=== PATIENT | female | born 1955 | race Two or more races ===

== ENCOUNTER 2025-06-10 07:45 | Inpatient (IN) | payer OTHER ==
[~2025-06-10] VITALS: Ht 167.6 cm; Wt 83.9 kg
[2025-06-10 09:25] VITALS: BP 155/82
[2025-06-10 09:35] LABS: BASO % 0.5 % (0.1-1.2); EOS # 0.24 (0.04-0.54); EOS % 3.9 % (0.7-7.0); LYMPH # 2.46 (1.18-3.74); LYMPH % 40.3 % (19.3-53.1); MEAN PLATELET VOLUME 9.30 fl (9.4-12.4); MONO # 0.61 (0.24-0.82); MONO % 10.0 % (4.7-12.5); NEUT # 2.75 (1.56-6.13); NEUT % 45.1 % (34.0-71.1); RED CELL DISTRIBUTION WIDTH 14.0 % (11.6-14.4)
[2025-06-10 09:49] LABS: URINE APPEARANCE Clear; URINE BILIRRUBIN Negative (NEGATIVE); URINE BLOOD Negative; URINE COLOR Yellow; URINE GLUCOSE Negative (NEGATIVE); URINE KETONE Negative (NEGATIVE); URINE LEUKOCYTE Negative; URINE NITRATE Negative; URINE PROTEIN Negative (NEGATIVE); URINE UROBILINOGEN 0.2 E.U./dl
[2025-06-10 09:54] LABS: URINE BACTERIA 11.9 uL (0.0-1933); URINE EPITHELIAL CELLS 2.6 uL (0.0-38.8); URINE RBC 4.1 uL (0.0-20.8)
[2025-06-10 10:00] LABS: INR 1.04
[2025-06-10 10:03] LABS: URINE CAST 0.00 uL (0.0-1.40); URINE WBC 0.7 uL (0.0-23.2)
[2025-06-10 11:03] LABS: ALT/SGPT 20.0 U/L (12-78); AST/SGOT 16.0 U/L (15-37); BILIRUBIN TOTAL 0.41 mg/dL (0.3-1.2); BUN CREA RATIO 24.0 (7.0-25.0); CHOL HDL RATIO 2.9 (0-5.0); CREATININE SERUM 0.74 mg/dL (0.55-1.02); GFR 78.28; GLOBULINA 4.3 G/DL (2.4-3.5); GLUCOSE FASTING 93.0 mg/dL (65-100); HDL 62.0 mg/dl (40-60); LDL 98.0 mg/dl (0-130); OSMOLALITY SERUM 283.0 MOSM/KG (275-295); VLDL 19.0 (0-39)
[2025-06-17] MEDS ORDERED: MORPHINE SULFATE 4 MG/ML CARTRIDGE IV ONE (09:45)
[2025-06-17] MEDS ORDERED: LIDOCAINE HCL 1%/EPINEPHRINE 20ML VIAL IJ ONE (09:45)
[2025-06-17] MEDS ORDERED: TRANEXAMIC ACID 100MG/1ML (1000MG) AMPUL IV ONE ×2 (09:45)
[2025-06-17] MEDS ORDERED: VANCOMYCIN HCL 1,000 MG VIAL IR ONE (09:45)
[2025-06-17] MEDS ORDERED: BUPIVACAINE HCL 30 ML VIAL IJ ONE (09:45)
[2025-06-17] MEDS ORDERED: KETOROLAC TROMETHAMINE 60 MG VIAL IM ONE (09:45)
[2025-06-17] MEDS ORDERED: VANCOMYCIN HCL 1,000 MG VIAL IV ONE (09:45)
[2025-06-17] MEDS ORDERED: SODIUM CHLORIDE 0.45 % 1,000 ML IV SCH (10:45)
[2025-06-17] MEDS ORDERED: MORPHINE SULFATE 4 MG/ML CARTRIDGE IV PRN (10:45)
[2025-06-17] MEDS ORDERED: ONDANSETRON HCL 2 MG/ML VIAL IV PRN (10:45)
[2025-06-17] MEDS ORDERED: OxyCODONE HCL 5 MG TABLET (ROXICODONE) PO PRN (10:45)
[2025-06-17] MEDS ORDERED: ACETAMINOPHEN 500 MG GEL..CAP PO SCH (12:00)
[2025-06-17 16:00] VITALS: BP 138/76; O2SAT 96
[2025-06-17] MEDS ORDERED: GABAPENTIN 300 MG CAPSULE PO SCH (17:00)
[2025-06-17] MEDS ORDERED: VANCOMYCIN HCL 1,000 MG VIAL IV SCH (21:00)
[2025-06-17] MEDS ORDERED: VANCOMYCIN HCL 1,000 MG in 0.9 % SODIUM CHLORIDE 250 ML IV SCH (21:00)
[2025-06-17] MEDS ORDERED: ENALAPRILAT DIHYDRATE 1.25 MG/ML VIAL IV PRN (22:30)
[2025-06-18 00:30] VITALS: BP 107/54; O2SAT 98
[2025-06-18 06:13] LABS: BASO % 0.3 % (0.1-1.2); EOS # 0.04 (0.04-0.54); EOS % 0.5 % (0.7-7.0); LYMPH # 1.71 (1.18-3.74); LYMPH % 22.6 % (19.3-53.1); MEAN PLATELET VOLUME 9.10 fl (9.4-12.4); MONO # 0.71 (0.24-0.82); MONO % 9.4 % (4.7-12.5); NEUT # 5.08 (1.56-6.13); NEUT % 66.9 % (34.0-71.1); RED CELL DISTRIBUTION WIDTH 13.9 % (11.6-14.4)
[2025-06-18] MEDS ORDERED: PERCOCET 5-3251 EACH PO (07:26)
[2025-06-18] MEDS ORDERED: ELIQUIS2.5 MG PO (07:26)
[2025-06-18] MEDS ORDERED: CIPRO500 MG PO (07:26)
[2025-06-18 08:44] VITALS: BP 115/69; O2SAT 92
[2025-06-18] MEDS ORDERED: SENNOSIDES 1 TAB TABLET PO SCH (09:00)
[2025-06-18] MEDS ORDERED: APIXABAN 2.5 MG TABLET PO SCH (09:00)
[2025-06-18 14:04] LABS: COVID-19 AG NEGATIVE (NEGATIVE)
[2025-06-18 16:33] VITALS: BP 115/54; O2SAT 95
[2025-06-19] MEDS ORDERED: IRON FUM,PS/FOLIC ACID/VITC/B3 1 CAP CAPSULE PO SCH (09:00)
== END 2025-06-18 15:30 | DRG 470 ==
LOC: SURG 06-17 07:00 → O/R 06-17 07:00 → SURH 06-17 07:45 → SURG 06-17 13:10
PROVIDERS: ADMIT Orthopaedic Surgery; ATTEND Orthopaedic Surgery
PROC: 0MNN0ZZ Release Right Knee Bursa and Ligament, Open Approach (ICD-10-PCS; 2025-06-17)
PROC: 0QUD0JZ Supplement Right Patella with Synthetic Substitute, Open Approach (ICD-10-PCS; 2025-06-17)
PROC: 0QUD0KZ Supplement Right Patella with Nonautologous Tissue Substitute, Open Approach (ICD-10-PCS; 2025-06-17)
PROC: 0SRC0JZ Replacement of Right Knee Joint with Synthetic Substitute, Open Approach (ICD-10-PCS; principal; 2025-06-17 11:30)
DX: M17.11 Unilateral primary osteoarthritis, right knee (principal); Z96.651 Presence of right artificial knee joint; E66.9 Obesity, unspecified; M22.11 Recurrent subluxation of patella, right knee; E66.813 Obesity, class 3; Z68.29 Body mass index [BMI] 29.0-29.9, adult